=== PATIENT | female | born 1945 | race Caucasian/White ===

== ENCOUNTER 2019-11-08 14:22 | Observation (INO) | payer MEDICARE, OTHER, SELFPAY ==
[2019-11-08 14:24] VITALS: BMI 19.7
[2019-11-08 14:27] VITALS: BP 141/70; PULSE 70; RESP 16; TEMP 36.8; O2SAT 97
--- NOTE | 2019-11-08 14:27 | W.ED.EXTPRO ---
Documented by User: SAM Ragland 11/10/19 07:04 HPI - Extremity Problem General: Chief complaint: Extremity Problem,Nontraumatic Stated complaint: LEFT ARM PAIN Time Seen by Provider: 11/08/19 14:27 Source: patient Mode of arrival: ambulatory Limitations: no limitations History of Present Illness: HPI Narrative: Patient is a 74-year-old female who presents to ED today with complaints of left arm pain that began earlier today; patient states she was having pain in her back which is normal for her and states she took a morphine tablet because of this; patient reports last time she took a morphine tablet she noticed left arm pain as well; when asked patient does report that before the arm pain started she had a small amount of chest pains that have now completely subsided; she does not feel short of breath; denies dizziness, lightheadedness, syncopal episodes; denies numbness, tingling, loss of sensation, weakness in her upper extremities; denies headache or visual changes MD Complaint: extremity pain Relieving factors: nothing Associated symptoms: Reports chest pain; Deny fever(s) or rash Review of Systems Const: Denies: fever or chills Eyes: Denies: change in vision or blurry vision Card: Reports: chest pain; Denies: palpitations, irregular heart rhythm, edema, lightheadedness, syncope or shortness of breath on exertion Resp: Denies: shortness of breath, productive cough or pain on inspiration GI: Denies: abdominal pain, nausea, vomiting, heartburn/indigestion or diarrhea : Denies: painful urination Musc: Denies: neck pain, back pain or joint pain Skin/Breast: Denies: rash PFSH ED PFSH: Statuses (acute, chronic, etc) shown below reflect problem list status as previously entered and may not be historically accurate Surgical History H/O: hysterectomy (Acute) History of appendectomy (Acute) History of cholecystectomy (Acute) Social History Smoking and tobacco status: current every day smoker cigarettes Packs smoked per day: 1 Alcohol intake: never Household members: none Housing: House Physical Exam Const: COMMON NORMALS: no apparent distress, oriented x3, alert and well nourished HENMT: COMMON NORMALS: normocephalic and head/scalp atraumatic HEAD & SCALP: normocephalic and atraumatic Neck/C-Spine: COMMON NORMALS: full ROM, no lymphadenopathy, supple and no meningeal signs Chest: COMMONS NORMALS: inspection of chest normal Resp: COMMON NORMALS: normal respiratory effort and clear to auscultation bilaterally AUSCULTATION: clear to auscultation bilaterally Cardio: COMMON NORMALS: regular rate and regular rhythm RATE: regular rate RHYTHM: regular rhythm GI: COMMON NORMALS: normal to inspection, nondistended, normoactive bowel sounds, soft to palpation, non-tender, no hepatosplenomegaly and no masses PALPATION: Yes soft and Yes no hepatosplenomegaly : COMMON NORMALS: Yes no CVA tenderness BLADDER/KIDNEY EXAM: Yes no CVA tenderness Back/Pelvis: COMMON NORMALS: no CVA tenderness and thoracic and lumbar spine normal to inspection Extremity: COMMON NORMALS: normal to inspection Neuro: COMMON NORMALS: oriented x3 SENSORIUM/ORIENTATION: Yes alert MENINGEAL SIGNS: Yes no meningeal signs Skin: COMMON NORMALS: no rashes or lesions noted GENERAL SKIN EXAM: no rashes or lesions noted Course Vital Signs: Vital signs: Vital Signs Temperature 97.9 F 11/09/19 11:00 Pulse Rate 67 11/09/19 11:00 Respiratory Rate 18 11/09/19 11:00 Blood Pressure 102/54 11/09/19 11:00 Pulse Oximetry 97 11/09/19 11:00 MDM - Extremity (Nontraumatic) Lab Data: Labs: Lab Results 11/08/19 11/08/19 11/08/19 Range/Units 14:40 14:40 14:40 WBC 4.0 (4.0-10.0) 10^3/ uL RBC 4.55 (4.1-5.3) 10^6/u L Hgb 13.7 (11.5-15.3) g/dL Hct 39.8 (37.0-47.0) % MCV 87.5 (81-99) fL MCH 30.1 (28.0-34.0) pg MCHC 34.4 (30.0-36.0) g/dL RDW 12.5 (12.1-15.1) % Plt Count 174 (130-400) 10^3/c mm MPV 11.3 H (7.4-10.4) fL Neut % (Auto) 84.4 % Lymph % (Auto) 4.5 % [place] % (Auto) 9.8 % Eos % (Auto) 0.0 % Baso % (Auto) 0.5 % Neut # (Auto) 3.4 (1.8-7.7) 10^3/u L Lymph # (Auto) 0.2 L (0.8-4.8) 10^3/u L [place] # (Auto) 0.4 (0.2-0.9) 10^3/u L Eos # (Auto) 0.0 (0.0-0.8) 10^3/u L Baso # (Auto) 0.0 (0.0-0.1) 10^3/u L Nucleated RBC % (a uto) 0 % Nucleated RBCs # 0.0 /100WBC Sodium 145 (136-145) mmol/L Potassium 4.3 (3.5-5.1) mmol/L Chloride 103 (98-107) mmol/L Carbon Dioxide 25 (22-29) mmol/L Anion Gap 21.3 H (5-19) BUN 30 H (8-23) mg/dL Creatinine 0.9 (0.5-0.9) mg/dL Glucose 109 H (74-106) mg/dL Calcium 10.0 (8.8-10.2) mg/Dl Total Bilirubin 0.3 (0.15-1.2) mg/dL AST 46 H (0-32) U/L ALT 24 (0-33) U/L Alkaline Phosphata se 124 H (35-105) IU/L Troponin T Baselin e 18 H (0-10) ng/mL Troponin T 120 Min tangirnaq (0-10) ng/mL Delta Troponin T (0-10) ABS# Total Protein 7.4 (6.6-8.7) g/dL Albumin 3.8 (3.5-5.2) g/dL Globulin 3.6 (1.3-4.6) g/dL Urine Color (Yellow) Urine Appearance (CLEAR) Urine pH (5-7) Ur Specific Gravit y (1.005-1.030) Urine Protein (Negative) Urine Glucose (UA) (Normal) Urine Ketones (Negative) Urine Occult Blood (Negative) Urine Nitrate (Negative) Urine Bilirubin (NEGATIVE) Urine Urobilinogen (Negative) mg/dL Ur Leukocyte Maci ase (Negative) 11/08/19 11/08/19 Range/Units 16:27 16:32 WBC (4.0-10.0) 10^3/ uL RBC (4.1-5.3) 10^6/u L Hgb (11.5-15.3) g/dL Hct (37.0-47.0) % MCV (81-99) fL MCH (28.0-34.0) pg MCHC (30.0-36.0) g/dL RDW (12.1-15.1) % Plt Count (130-400) 10^3/c mm MPV (7.4-10.4) fL Neut % (Auto) % Lymph % (Auto) % [place] % (Auto) % Eos % (Auto) % Baso % (Auto) % Neut # (Auto) (1.8-7.7) 10^3/u L Lymph # (Auto) (0.8-4.8) 10^3/u L [place] # (Auto) (0.2-0.9) 10^3/u L Eos # (Auto) (0.0-0.8) 10^3/u L Baso # (Auto) (0.0-0.1) 10^3/u L Nucleated RBC % (a uto) % Nucleated RBCs # /100WBC Sodium (136-145) mmol/L Potassium (3.5-5.1) mmol/L Chloride (98-107) mmol/L Carbon Dioxide (22-29) mmol/L Anion Gap (5-19) BUN (8-23) mg/dL Creatinine (0.5-0.9) mg/dL Glucose (74-106) mg/dL Calcium (8.8-10.2) mg/Dl Total Bilirubin (0.15-1.2) mg/dL AST (0-32) U/L ALT (0-33) U/L Alkaline Phosphata se (35-105) IU/L Troponin T Baselin e (0-10) ng/mL Troponin T 120 Min tangirnaq 17.57 H (0-10) ng/mL Delta Troponin T -0.43 L (0-10) ABS# Total Protein (6.6-8.7) g/dL Albumin (3.5-5.2) g/dL Globulin (1.3-4.6) g/dL Urine Color Yellow (Yellow) Urine Appearance Clear (CLEAR) Urine pH 5 (5-7) Ur Specific Gravit y 1.010 (1.005-1.030) Urine Protein Neg (Negative) Urine Glucose (UA) Norm (Normal) Urine Ketones Negative (Negative) Urine Occult Blood Neg (Negative) Urine Nitrate Negative (Negative) Urine Bilirubin Neg (NEGATIVE) Urine Urobilinogen Norm (Negative) mg/dL Ur Leukocyte Maci ase Negative (Negative) Imaging Data^: CXR: Radiologist's impression: [address] [address] XRay Report Signed Patient: Anju Mackey Unit #: [id number] : 1945 Age/Sex: 74 / F ADM Date: 11/08/19 Loc: ER Room/Bed: Attending Dr: Ordering Provider/Ordering MD: Nata Parikh Date of Service: 11/08/19 Procedure(s): XR chest 1V portable [id number] Accession Number(s): [id number] Report Number: [id number] PROCEDURE INFORMATION: Exam: XR Chest, 1 View Exam date and time: 11/08/2019 2:33 PM Age: 74 years old Clinical indication: Chest pain; Other: Taj arm and back pain; Prior surgery; Surgery date: 6+ months; Surgery type: Stents; Additional info: Cough/congestion TECHNIQUE: Imaging protocol: XR of the chest Views: 1 view. COMPARISON: CR Chest 1 [place] [id number] 07/20/2016 10:50 AM FINDINGS: Lungs: Stable COPD . Pleural space: Unremarkable. No pleural effusion. No pneumothorax. Heart/Mediastinum: Unremarkable. No cardiomegaly. Bones/joints: Unremarkable. Other findings: Patient rotation to the right. XR/XR chest 1V portable [id number] IMPRESSION: Stable COPD . Dictated By: Nilo Elkins MD Signed By: Nilo Elkins MD Signed Date/Time: 11/08/19 1516 DD/ 1514 EKG Data^: EKG 1: EKG interpretation date: 11/08/19 EKG interpretation time: 14:39 Prior EKG tracings: available for review Interpretation: Sinus rhythm Rate 77 LBBB No acute changes from previous on 06/[address] King EKG 2: EKG interpretation date: 11/08/19 EKG interpretation time: 16:28 Prior EKG tracings: available for review Interpretation: Sinus rhythm Rate 82 LBBB No changes from previous EKG performed earlier in this visit Discharge Plan Discharge Patient Disposition: Placed in Observation Admit Provider: Ivette Sagastume Clinical Impression: Chest pain Condition: Stable Referrals: Butch Gilbert MD [Physician] - 1 week (You have an follow-up appointment wit Evonne Rodrigues on SaturdayNovember 17 at 10:30a.m. If, you have any questions or need to reschedule. Please, call ) Vanessa Vega DO [Family Provider] - 4-7 days (You have an follow-up appointment with Vanessa Vega DO on November 12 at 10 a.m. If, you have any questions or need to reschedule. Please, call ) Discharge Diet: Cardiac Discharge Activity: Resume usual activity Patient Instructions: Chronic Pain (DC), Narcotic Pain Management (DC) Additional Instructions: Please avoid any NSAIDs, ibuprofen, naproxen, etc due to mild kidney injury. For now hold simvastatin. This may be resumed by primary care provider. Hold lisinopril-HCTZ if your blood pressure is lower than 120/80. If you experience chest pain, which is not resolving with nitroglycerin, proceed to emergency department for evaluation. Discharge Date/Time: 11/08/19 19:53 Coding Level of Care Code ED Environmental Specialist for Chg Fwd Exam Problem Focused Documented by User: Milan King MD, [facility] 11/08/19 17:49 HPI - Extremity Problem General: Chief complaint: Extremity Problem,Nontraumatic Stated complaint: LEFT ARM PAIN Time Seen by Provider: 11/08/19 14:27 PFSH ED PFSH: Statuses (acute, chronic, etc) shown below reflect problem list status as previously entered and may not be historically accurate Surgical History H/O: hysterectomy (Acute) History of appendectomy (Acute) History of cholecystectomy (Acute) Social History Smoking and tobacco status: current every day smoker cigarettes Packs smoked per day: 1 Alcohol intake: never Household members: none Housing: House Course Vital Signs: Vital signs: Vital Signs Temperature 97.9 F 11/09/19 11:00 Pulse Rate 67 11/09/19 11:00 Respiratory Rate 18 11/09/19 11:00 Blood Pressure 102/54 11/09/19 11:00 Pulse Oximetry 97 11/09/19 11:00 MDM - Extremity (Nontraumatic) MDM Narrative: Medical decision making narrative: 74-year-old female patient who presents with chest pain radiating to her arm. Her heart score is 6 making a high risk candidate. She is therefore being admitted overnight for cardiac work-up. Medical Records: Attestation: I reviewed the patient's medical records. Lab Data: Attestation: I reviewed the patient's lab results. Labs: Lab Results 11/08/19 11/08/19 11/08/19 Range/Units 14:40 14:40 14:40 WBC 4.0 (4.0-10.0) 10^3/ uL RBC 4.55 (4.1-5.3) 10^6/u L Hgb 13.7 (11.5-15.3) g/dL Hct 39.8 (37.0-47.0) % MCV 87.5 (81-99) fL MCH 30.1 (28.0-34.0) pg MCHC 34.4 (30.0-36.0) g/dL RDW 12.5 (12.1-15.1) % Plt Count 174 (130-400) 10^3/c mm MPV 11.3 H (7.4-10.4) fL Neut % (Auto) 84.4 % Lymph % (Auto) 4.5 % [place] % (Auto) 9.8 % Eos % (Auto) 0.0 % Baso % (Auto) 0.5 % Neut # (Auto) 3.4 (1.8-7.7) 10^3/u L Lymph # (Auto) 0.2 L (0.8-4.8) 10^3/u L [place] # (Auto) 0.4 (0.2-0.9) 10^3/u L Eos # (Auto) 0.0 (0.0-0.8) 10^3/u L Baso # (Auto) 0.0 (0.0-0.1) 10^3/u L Nucleated RBC % (a uto) 0 % Nucleated RBCs # 0.0 /100WBC Sodium 145 (136-145) mmol/L Potassium 4.3 (3.5-5.1) mmol/L Chloride 103 (98-107) mmol/L Carbon Dioxide 25 (22-29) mmol/L Anion Gap 21.3 H (5-19) BUN 30 H (8-23) mg/dL Creatinine 0.9 (0.5-0.9) mg/dL Glucose 109 H (74-106) mg/dL Calcium 10.0 (8.8-10.2) mg/Dl Total Bilirubin 0.3 (0.15-1.2) mg/dL AST 46 H (0-32) U/L ALT 24 (0-33) U/L Alkaline Phosphata se 124 H (35-105) IU/L Troponin T Baselin e 18 H (0-10) ng/mL Troponin T 120 Min tangirnaq (0-10) ng/mL Delta Troponin T (0-10) ABS# Total Protein 7.4 (6.6-8.7) g/dL Albumin 3.8 (3.5-5.2) g/dL Globulin 3.6 (1.3-4.6) g/dL Urine Color (Yellow) Urine Appearance (CLEAR) Urine pH (5-7) Ur Specific Gravit y (1.005-1.030) Urine Protein (Negative) Urine Glucose (UA) (Normal) Urine Ketones (Negative) Urine Occult Blood (Negative) Urine Nitrate (Negative) Urine Bilirubin (NEGATIVE) Urine Urobilinogen (Negative) mg/dL Ur Leukocyte Maci ase (Negative) 11/08/19 11/08/19 Range/Units 16:27 16:32 WBC (4.0-10.0) 10^3/ uL RBC (4.1-5.3) 10^6/u L Hgb (11.5-15.3) g/dL Hct (37.0-47.0) % MCV (81-99) fL MCH (28.0-34.0) pg MCHC (30.0-36.0) g/dL RDW (12.1-15.1) % Plt Count (130-400) 10^3/c mm MPV (7.4-10.4) fL Neut % (Auto) % Lymph % (Auto) % [place] % (Auto) % Eos % (Auto) % Baso % (Auto) % Neut # (Auto) (1.8-7.7) 10^3/u L Lymph # (Auto) (0.8-4.8) 10^3/u L [place] # (Auto) (0.2-0.9) 10^3/u L Eos # (Auto) (0.0-0.8) 10^3/u L Baso # (Auto) (0.0-0.1) 10^3/u L Nucleated RBC % (a uto) % Nucleated RBCs # /100WBC Sodium (136-145) mmol/L Potassium (3.5-5.1) mmol/L Chloride (98-107) mmol/L Carbon Dioxide (22-29) mmol/L Anion Gap (5-19) BUN (8-23) mg/dL Creatinine (0.5-0.9) mg/dL Glucose (74-106) mg/dL Calcium (8.8-10.2) mg/Dl Total Bilirubin (0.15-1.2) mg/dL AST (0-32) U/L ALT (0-33) U/L Alkaline Phosphata se (35-105) IU/L Troponin T Baselin e (0-10) ng/mL Troponin T 120 Min tangirnaq 17.57 H (0-10) ng/mL Delta Troponin T -0.43 L (0-10) ABS# Total Protein (6.6-8.7) g/dL Albumin (3.5-5.2) g/dL Globulin (1.3-4.6) g/dL Urine Color Yellow (Yellow) Urine Appearance Clear (CLEAR) Urine pH 5 (5-7) Ur Specific Gravit y 1.010 (1.005-1.030) Urine Protein Neg (Negative) Urine Glucose (UA) Norm (Normal) Urine Ketones Negative (Negative) Urine Occult Blood Neg (Negative) Urine Nitrate Negative (Negative) Urine Bilirubin Neg (NEGATIVE) Urine Urobilinogen Norm (Negative) mg/dL Ur Leukocyte Maci ase Negative (Negative) Discharge Plan Discharge Patient Disposition: Placed in Observation Admit Provider: Ivette Sagastume Clinical Impression: Chest pain Condition: Stable Referrals: Butch Gilbert MD [Physician] - 1 week (You have an follow-up appointment wit Evonne Rodrigues on SaturdayNovember 17 at 10:30a.m. If, you have any questions or need to reschedule. Please, call ) Vanessa Vega DO [Family Provider] - 4-7 days (You have an follow-up appointment with Vanessa Vega DO on November 12 at 10 a.m. If, you have any questions or need to reschedule. Please, call ) Discharge Diet: Cardiac Discharge Activity: Resume usual activity Patient Instructions: Chronic Pain (DC), Narcotic Pain Management (DC) Additional Instructions: Please avoid any NSAIDs, ibuprofen, naproxen, etc due to mild kidney injury. For now hold simvastatin. This may be resumed by primary care provider. Hold lisinopril-HCTZ if your blood pressure is lower than 120/80. If you experience chest pain, which is not resolving with nitroglycerin, proceed to emergency department for evaluation. Discharge Date/Time: 11/08/19 19:53 Coding Level of Care Code ED Environmental Specialist for Rebecca Meyers Exam Problem Focused
--- NOTE | 2019-11-08 14:32 | XRR_ITS ---
PROCEDURE INFORMATION: Exam: XR Chest, 1 View Exam date and time: 11/08/2019 2:33 PM Age: 74 years old Clinical indication: Chest pain; Other: Taj arm and back pain; Prior surgery; Surgery date: 6+ months; Surgery type: Stents; Additional info: Cough/congestion TECHNIQUE: Imaging protocol: XR of the chest Views: 1 view. COMPARISON: CR Chest 1 [place] [id number] 07/20/2016 10:50 AM FINDINGS: Lungs: Stable COPD . Pleural space: Unremarkable. No pleural effusion. No pneumothorax. Heart/Mediastinum: Unremarkable. No cardiomegaly. Bones/joints: Unremarkable. Other findings: Patient rotation to the right. XR/XR chest 1V portable [id number] IMPRESSION: Stable COPD .
--- NOTE | 2019-11-08 14:32 | ECG_ITS ---
Measurements Intervals [place] Rate: 77 P: 62 LA: 169 QRS: -9 QRSD: 150 T: 118 QT: 415 QTc: 472 SINUS RHYTHM POSSIBLE LEFT ATRIAL ENLARGEMENT [-0.1mV P WAVE IN V1/V2] LEFT BUNDLE BRANCH BLOCK [120+ ms QRS DURATION, 80+ ms Q/S IN V1/V2, 85+ ms R IN I/aVL/V5/V6] Compared to ECG 07/20/2016 16:34:03 Ventricular premature complex(es) no longer present Electronically Signed On 11-08-2019 19:20:15 TRANSCRIPT CLERK by Katerina Whaley M.D. [email or web address]
[2019-11-08 14:45] VITALS: PULSE 71
--- NOTE | 2019-11-08 14:46 | PC.NURSE ---
Patient states that the pain started after taking her 15 mg morphine tablet for back pain, patient also c/o of severe back pain and near syncope post medication.
[2019-11-08 14:50] LABS: Basophils % 0.5 %; Hematocrit 39.8 % (37.0-47.0); Hemoglobin 13.7 g/dL (11.5-15.3); Lymphocytes # 0.2 10^3/uL (0.8-4.8); Lymphocytes % 4.5 %; Mean Corpuscular HGB Conc 34.4 g/dL (30.0-36.0); Mean Corpuscular Hemoglobin 30.1 pg (28.0-34.0); Mean Corpuscular Volume 87.5 fL (81-99); Mean Platelet Volume 11.3 fL (7.4-10.4); Monocytes # 0.4 10^3/uL (0.2-0.9); Monocytes % 9.8 %; Neutrophils # 3.4 10^3/uL (1.8-7.7); Neutrophils % 84.4 %; Nucleated Red Blood Cells % 0 %; Platelet Count 174 10^3/cmm (130-400); Red Blood Count 4.55 10^6/uL (4.1-5.3); Red Cell Distribution Width 12.5 % (12.1-15.1)
[2019-11-08 15:04] LABS: Alanine Aminotransferase 24 U/L (0-33); Albumin Level 3.8 g/dL (3.5-5.2); Alkaline Phosphatase 124 IU/L (35-105); Anion Gap 21.3 (5-19); Aspartate Amino Transferase 46 U/L (0-32); Blood Urea Nitrogen 30 mg/dL (8-23); Carbon Dioxide 25 mmol/L (22-29); Chloride 103 mmol/L (98-107); Globulin 3.6 g/dL (1.3-4.6); Glucose 109 mg/dL (74-106); Potassium 4.3 mmol/L (3.5-5.1); Sodium 145 mmol/L (136-145); Total Bilirubin 0.3 mg/dL (0.15-1.2); Total Protein 7.4 g/dL (6.6-8.7)
[2019-11-08 15:06] LABS: Troponin(5th) Baseline 18 ng/mL (0-10)
--- NOTE | 2019-11-08 16:32 | ECG_ITS ---
Measurements Intervals [place] Rate: 82 P: 63 MA: 165 QRS: 5 QRSD: 138 T: 152 QT: 402 QTc: 470 SINUS RHYTHM POSSIBLE LEFT ATRIAL ENLARGEMENT [-0.1mV P WAVE IN V1/V2] LEFT BUNDLE BRANCH BLOCK [120+ ms QRS DURATION, 80+ ms Q/S IN V1/V2, 85+ ms R IN I/aVL/V5/V6] Compared to ECG 07/20/2016 16:34:03 Ventricular premature complex(es) no longer present Electronically Signed On 11-08-2019 19:24:15 KARDEX CLERK by Katerina Whaley M.D. [id number]
[2019-11-08 16:35] LABS: Add Urine Microscopic? NO
[2019-11-08 16:38] LABS: Bilirubin Urine Neg (NEGATIVE); Blood Urine Neg (Negative); Glucose Urine UA Norm (Normal); Ketones Urine Negative (Negative); Leukocyte Esterase Urine Negative (Negative); Nitrate Urine Negative (Negative); Protein Urine Neg (Negative); Urine Appearance Clear (CLEAR); Urine Color Yellow (Yellow); Urobilinogen Urine Norm (Negative); pH Urine 5 (5-7)
[2019-11-08 16:54] LABS: Troponin 5 2HR 17.57 ng/mL (0-10)
[2019-11-08] MEDS: ondansetron 2 mg/ML SDV 2 mL 4 MG IM (16:55)
[2019-11-08 16:58] LABS: Troponin 5 2HR Delta -0.43 ABS# (0-10)
--- NOTE | 2019-11-08 18:15 | PM.HP ---
Providers/Chief Complaint Admitting Physician: Ivette Sagastume MD Chief Complaint: LEFT ARM PAIN History of Present Illness Anju Mackey is a 74 year old female with PMHx of CAD s/p stenting x 6 (2006), HTN, Hyperlipidemia, Chronic smoker, Chronic back pain (on narcotics), presents with c/o LUE pain that started this AM after taking dose of oral morphine prescribed recently for chronic low back pain. She has had a similar episode about a week ago after taking her first dose of oral morphine in addition to nausea, lightheadedness and almost passing out. She denies chest pain/discomfort, shortness of breath, vomiting until today while in ED; LE edema. She did take NTG at home prior to coming to ED with some noted relief in her symptoms. She has had prior stenting all done at the same time in 2006 and follows up with Dr. Gilbert as her primary regional transportation manager. She has not had recent cardiac workup, last done in 2015 with Echo showing EF=45-50% and chemical stress testing that was negative for significant ischemia. She has had 2 gen 5 troponins done with no significant delta change, no new ECG changes, stable vital signs, and following episode of NBNB emesis, feels almost like her usual self. Given need to r/o anginal equivalent in a patient with significant CAD risk factors, she is been admitted for further workup. I did discuss possibility of stress testing which she is very reluctant to have as she has had bad reactions to them in the past. Agreeable to labs, ECG, telemetry monitoring for now. Family member at bedside during my evaluation in ED. Review of Systems Const: Denies: fever, chills, change in appetite or fatigue Eyes: Denies: change in vision Card: Reports: lightheadedness and pre-syncope; Denies: chest pain, edema, swelling of feet/ankles, shortness of breath on exertion or shortness of breath when lying down Resp: Denies: shortness of breath or productive cough GI: Reports: nausea and vomiting (NBNB (in ED)); Denies: abdominal pain, vomiting blood or blood in stool : Denies: difficulty urinating, painful urination or urinary frequency Musc: Reports: back pain (chronic, low) and extremity pain (left arm) Skin/Breast: Denies: rash Neuro: Denies: numbness in extremities or weakness in extremities Psych: Denies: anxiety Medications/Allergies Home Medications Medication Instructions Recorded Confirmed Last Taken Type amlodipine 10 mg PO DAILY 11/08/19 11/08/19 11/07/19 History clopidogrel 75 mg PO DAILY 11/08/19 11/08/19 11/08/19 History ibuprofen [Advil] See Rx Instructions .ROUTE .COMPLEX 11/08/19 11/08/19 Unknown History lisinopril-hydrochlorothiazide 2 tab PO DAILY 11/08/19 11/08/19 11/07/19 History morphine 15 mg PO Q4H PRN 11/08/19 11/08/19 11/08/19 History simvastatin 40 mg PO QPM 11/08/19 11/08/19 11/07/19 History tafluprost (PF) [Zioptan (PF)] 1 drp OPHTHALMIC (EYE) QPM 11/08/19 11/08/19 11/07/19 History timolol maleate 1 drp OPHTHALMIC (EYE) QAM 11/08/19 11/08/19 11/08/19 History trazodone 50 - 150 mg PO BEDTIME 11/08/19 11/08/19 11/07/19 History Allergies Allergy/AdvReac Type Severity Reaction Status Date / Time Iodinated Contrast Media Allergy ADR-Chest Verified 11/08/19 14:34 Pain tetracycline Allergy ADR-Nausea Verified 11/08/19 14:34 PFSH Acute PFSH: Statuses (acute, chronic, etc) shown below reflect problem list status as previously entered and may not be historically accurate Medical History (Updated 11/08/19 @ 18:22 by Ivette Sagastume MD) Coronary artery disease (Acute) s/p stenting x 6 (2006) Hyperlipidemia (Acute) Hypertension (Acute) Surgical History H/O: hysterectomy (Acute) History of appendectomy (Acute) History of cholecystectomy (Acute) Family History (Updated 11/08/19 @ 18:20 by Ivette Sagastume MD) Other CAD (coronary artery disease) Cancer Diabetes Social History (Updated 11/08/19 @ 18:20 by Ivette Sagastume MD) Smoking and tobacco status: current every day smoker cigarettes Packs smoked per day: 1 Alcohol intake: never Substance/Drug Use: never Household members: none Housing: House Vitals/I&O/Wt Last Vital Signs Temp 98.2 F 11/08/19 14:27 Pulse 71 11/08/19 14:45 Resp 16 11/08/19 14:27 BP 141/70 11/08/19 14:27 Pulse Ox 97 11/08/19 14:27 Weight last 48 hrs Weight 48.988 kg Physical Exam Const: COMMON NORMALS: no apparent distress and oriented x3 GENERAL APPEARANCE: cooperative, comfortable and appears older than stated age NUTRITIONAL APPEARANCE: thin ORIENTATION/CONSCIOUSNESS: Yes awake HENMT: COMMON NORMALS: normocephalic, head/scalp atraumatic, hearing grossly normal bilaterally and moist oral mucous membranes HEAD & SCALP: normocephalic and atraumatic MOUTH: moist mucous membranes abnormal Details: parched Eye: COMMON NORMALS: PERRL, EOMs intact bilaterally and conjunctivae normal CONJUNCTIVA: Yes conjunctivae normal PUPIL: Yes PERRL Neck/C-Spine: COMMON NORMALS: full ROM GENERAL: Yes normal visual inspection and Yes trachea midline Resp: COMMON NORMALS: normal respiratory effort, no retractions and no use of accessory muscles EFFORT & INSPECTION: Yes able to speak in complete sentences, Yes symmetric chest movement and No tachypneic AUSCULTATION: no wheezes and diminished lung sounds bilateral Cardio: COMMON NORMALS: regular rate, regular rhythm, S1 normal heart sound, S2 normal heart sound and no murmurs RATE: regular rate RHYTHM: regular rhythm HEART SOUNDS: S1 normal and S2 normal GI: COMMON NORMALS: normal to inspection, nondistended, normoactive bowel sounds, soft to palpation and non-tender PALPATION: Yes soft Extremity: COMMON NORMALS: normal to inspection, full ROM and no clubbing, cyanosis or edema; negative for no pedal edema Neuro: COMMON NORMALS: oriented x3, moves all extremities, no focal motor deficits and no sensory deficits noted Psych: COMMON NORMALS: mental status grossly normal, thought process normal, cooperative, affect normal and speech normal SPEECH: Yes normal speech THOUGHT PROCESS: normal thought process Skin: COMMON NORMALS: no rashes or lesions noted, no jaundice, no petechiae and no mottling GENERAL SKIN EXAM: no rashes or lesions noted and other (Thin skin) Data : 11/08/19 14:40 11/08/19 14:40 A&P Assessment and plan (1) Left upper limb pain: -Patient presented with left upper extremity pain after taking morphine which she states has happened once before last week when she took her first dose of oral morphine which is prescribed for chronic low back pain. She denies having had any chest pain, shortness of breath but did have some lightheadedness and presyncope. -Given her significant coronary artery disease history with prior stenting x6, need to exclude anginal equivalent -Received morphine in the ER and had an episode of nausea and vomiting. Symptoms are now currently resolved -Avoid morphine as this seems to trigger her symptoms -Telemetry monitoring, monitoring of vital signs -Troponin x2 with negative delta change noted, 6-hour troponin pending -EKG showing left bundle branch block, no acute ischemic changes -Chest x-ray unremarkable -DEANNA -Continue statin and Plavix -Discussed possible stress testing which patient states she has had bad reactions to in the past and would like to hold off unless absolutely necessary -Follows up with Dr. Gilbert as an outpatient -From review of medical record last cardiac work-up available was done in 2015 including an echo which showed ejection fraction of 45 to 50%, grade 1 diastolic dysfunction, mild concentric LVH, trace TR; as well as chemical stress testing with no significant ischemia detected -Antiemetics as needed Status: Acute Code(s): M79.602 - Pain in left arm Additional A&P Information Additional A&P Information: -Hypertension; resume oral antihypertensives -Hyperlipidemia: On statin -Chronic low back pain: Hold narcotics for now -Chronic smoker; 1 pack/day, add nicotine patch -Chronic diastolic CHF, no acute exacerbation -Non-oxygen dependent COPD; no acute exacerbation -Cardiac diet as tolerated -ambulate with assistance as needed -GI prophylaxis with Famotidine -Low risk for DVT so hold off on prophylaxis -Dispo: home -Code status: FULL code Attestations Medical Necessity Statement*: Anju Mackey's hospital stay will be less than 2 midnights for workup of left upper extremity pain as anginal equivalent, including serial troponins, ECGs, telemetry monitoring. Time Spent in Patient Care: Greater than 35 minutes (>than 50% of time spent in counselling and/or direct pt care on unit). Coding Level of Care Code Acute Heavy Duty Mechanic for Rebecca Meyers Diagnoses Left upper limb pain M79.602
[2019-11-08 19:03] VITALS: BP 122/64; PULSE 82; RESP 16; O2SAT 93
[2019-11-08 19:53] VITALS: BP 125/66; PULSE 88; RESP 22; TEMP 36.9; O2SAT 93
--- NOTE | 2019-11-08 20:32 | ECG_ITS ---
Measurements Intervals [place] Rate: 73 P: 61 VA: 157 QRS: -28 QRSD: 141 T: 138 QT: 422 QTc: 465 SINUS RHYTHM WITH FREQUENT VENTRICULAR PREMATURE COMPLEXES BORDERLINE LEFT AXIS DEVIATION [QRS AXIS < -20] INTRAVENTRICULAR CONDUCTION DELAY [130+ ms QRS DURATION] INTERPRETATION BASED ON A DEFAULT AGE OF 40 YEARS Compared to ECG 11/08/2019 16:28:17 Ventricular premature complex(es) now present Intraventricular conduction delay now present Left bundle-branch block no longer present Electronically Signed On 11-09-2019 19:30:15 EDUCATIONAL ADMINISTRATION TEACHER by Katerina Whaley M.D. [email or web address]
[2019-11-08] MEDS: atorvastatin 40 mg Tablet PO (20:42)
[2019-11-08] MEDS: famotidine 20 mg Tablet PO (20:42)
[2019-11-08] MEDS: trazodone 50 mg Tablet PO (20:42)
[2019-11-08 20:49] LABS: Troponin 5 6HR 21.36 ng/L (0-10); Troponin 5 6HR Delta 3.36 ng/L (0-12)
[2019-11-08 23:46] VITALS: BP 108/59; PULSE 59; RESP 18; TEMP 37.1; O2SAT 95
[2019-11-09 03:00] VITALS: BP 118/55; PULSE 57; RESP 16; TEMP 36.6; O2SAT 95
[2019-11-09 03:33] LABS: Basophils % 0.6 %; Eosinophils # 0.2 10^3/uL (0.0-0.8); Eosinophils % 2.9 %; Hematocrit 39.3 % (37.0-47.0); Hemoglobin 12.7 g/dL (11.5-15.3); Lymphocytes # 2.2 10^3/uL (0.8-4.8); Lymphocytes % 41.8 %; Mean Corpuscular HGB Conc 32.3 g/dL (30.0-36.0); Mean Corpuscular Hemoglobin 28.5 pg (28.0-34.0); Mean Corpuscular Volume 88.1 fL (81-99); Mean Platelet Volume 10.2 fL (7.4-10.4); Monocytes # 0.5 10^3/uL (0.2-0.9); Monocytes % 10.3 %; Neutrophils # 2.3 10^3/uL (1.8-7.7); Neutrophils % 44.2 %; Nucleated Red Blood Cells % 0 %; Platelet Count 358 10^3/cmm (130-400); Red Blood Count 4.46 10^6/uL (4.1-5.3); White Blood Count 5.3 10^3/uL (4.0-10.0)
[2019-11-09 04:08] LABS: Anion Gap 17.1 (5-19); Blood Urea Nitrogen 32 mg/dL (8-23); Calcium 9.8 mg/Dl (8.8-10.2); Carbon Dioxide 21 mmol/L (22-29); Chloride 98 mmol/L (98-107); Glucose 97 mg/dL (74-106); Potassium 4.1 mmol/L (3.5-5.1); Sodium 132 mmol/L (136-145)
[2019-11-09 07:26] VITALS: BP 110/56; PULSE 60; RESP 16; TEMP 36.5; O2SAT 95
--- NOTE | 2019-11-09 08:19 | PC.NURSE ---
patient requesting coffee this am, this nurse educated patient on the importance of remaining caffeine free for possible testing. patient reports that she was not going to have any stress test performed due to her not tolerating well the last time. patient also refusing to take medications at this time states I am supposed to go home today and i dot normally take my medications until 10 and i would like to wait.
[2019-11-09] MEDS: lisinopril 20 mg Tablet 40 MG PO (09:47)
[2019-11-09] MEDS: amlodipine 10 mg Tablet PO (09:47)
[2019-11-09] MEDS: clopidogrel 75 mg Tablet PO (09:48)
--- NOTE | 2019-11-09 10:08 | P.DS_ITS ---
Discharge Providers Date of Admission: 11/08/19 19:39 Date of Discharge: 11/09/19 Attending Provider at Admission: Ivette Sagastume MD Attending Provider at Discharge: Fritz Mckeon Diagnoses at Discharge Discharge Diagnosis (1) Left upper limb pain: Status: Acute Reason for Visit Reason for Visit: Reason For Visit: LEFT ARM PAIN Hospital Course Hospital Course: 74-year-old lady with history of coronary disease status post stenting in 2006, HTN, HLD, chronic smoker, chronic back pain (on narcotics), was placed in observation after an episode of left upper extremity pain which she feels was triggered after taking a dose of her oral morphine. She describes pain in the entire left arm. Due to history of coronary disease she was kept for rule out of acute PA. For noted mildly elevated with unremarkable delta. EKG with left bundle branch block. On review of prior EKG her left bundle branch block appears to be old. Stress testing was discussed with her history, and she had declined preferring only to follow-up with her mallet and die cutter in office. She feels that her symptoms were related to medication as she reports having exact same symptoms in the past with the same medication. Discussed with her that this is not a common side effect. Reviewing her labs, her renal function worsened this morning slightly with creatinine up to 1.2. AST is noted with mild elevation at 46. This morning she is feeling well, denies any pain is wanting to return home. Discussed with her we will add CK to her other labs. For now would hold statin until can be resumed by her primary care provider. Will recheck renal function in several days. For now continue current medications, avoid NSAIDs. If renal function worsening her blood pressure medications may need to be held/changed. Physical Exam Const: COMMON NORMALS: no apparent distress and oriented x3 HENMT: COMMON NORMALS: oropharynx normal Neck/C-Spine: COMMON NORMALS: no JVD Resp: COMMON NORMALS: normal respiratory effort and clear to auscultation bilaterally AUSCULTATION: clear to auscultation bilaterally Cardio: COMMON NORMALS: no JVD, regular rhythm, S1 normal heart sound, S2 normal heart sound and no murmurs RHYTHM: regular rhythm HEART SOUNDS: S1 normal and S2 normal GI: COMMON NORMALS: normal to inspection, nondistended, normoactive bowel sounds, soft to palpation and non-tender PALPATION: Yes soft Extremity: COMMON NORMALS: no joint enlargement and no pedal edema OTHER: No pain on shoulder abduction. No bicipital origin pain. No neck pain on palpation. Neuro: COMMON NORMALS: oriented x3 and moves all extremities Skin: COMMON NORMALS: no rashes or lesions noted GENERAL SKIN EXAM: no rashes or lesions noted Discharge Data Data Completed and Pending: Completed Studies During Hospitalization Category Date Time Status XR chest 1V bright ble [id number] Urgent Exams 11/08/19 14:32 Completed Pending at discharge Category Date Time Status Creatine Phosphok inase Routine Lab 11/09/19 09:58 Ordered Labs from last 24 hours 11/09/19 11/09/19 11/08/19 02:56 02:56 20:29 WBC 5.3 RBC 4.46 Hgb 12.7 Hct 39.3 MCV 88.1 MCH 28.5 MCHC 32.3 D RDW 13.0 Plt Count 358 MPV 10.2 Neut % (Auto) 44.2 Lymph % (Auto) 41.8 Bowie % (Auto) 10.3 Eos % (Auto) 2.9 Baso % (Auto) 0.6 Neut # (Auto) 2.3 Lymph # (Auto) 2.2 Bowie # (Auto) 0.5 Eos # (Auto) 0.2 Baso # (Auto) 0.0 Nucleated RBC % (a uto) 0 Nucleated RBCs # 0.0 Sodium 132 L Potassium 4.1 Chloride 98 Carbon Dioxide 21 L Anion Gap 17.1 BUN 32 H Creatinine 1.2 H Glucose 97 Calcium 9.8 Total Bilirubin AST ALT Alkaline Phosphata se Troponin I 6 Hour 21.36 H Troponin I Hi Sens Del 3.36 Troponin T Baselin e Troponin T 120 Min [place] Troponin T Total Protein Albumin Globulin Urine Color Urine Appearance Urine pH Ur Specific Gravit y Urine Protein Urine Glucose (UA) Urine Ketones Urine Occult Blood Urine Nitrate Urine Bilirubin Urine Urobilinogen Ur Leukocyte Maci ase 11/08/19 11/08/19 11/08/19 16:32 16:27 14:40 WBC RBC Hgb Hct MCV MCH MCHC RDW Plt Count MPV Neut % (Auto) Lymph % (Auto) [place]ie % (Auto) Eos % (Auto) Baso % (Auto) Neut # (Auto) Lymph # (Auto) [place] # (Auto) Eos # (Auto) Baso # (Auto) Nucleated RBC % (a uto) Nucleated RBCs # Sodium Potassium Chloride Carbon Dioxide Anion Gap BUN Creatinine Glucose Calcium Total Bilirubin AST ALT Alkaline Phosphata se Troponin I 6 Hour Troponin I Hi Sens Del Troponin T Baselin e 18 H Troponin T 120 Min [place] 17.57 H [place] Troponin T -0.43 L Total Protein Albumin Globulin Urine Color Yellow Urine Appearance Clear Urine pH 5 Ur Specific Gravit y 1.010 Urine Protein Neg Urine Glucose (UA) Norm Urine Ketones Negative Urine Occult Blood Neg Urine Nitrate Negative Urine Bilirubin Neg Urine Urobilinogen Norm Ur Leukocyte Maci ase Negative 11/08/19 11/08/19 14:40 14:40 WBC 4.0 RBC 4.55 Hgb 13.7 Hct 39.8 MCV 87.5 MCH 30.1 MCHC 34.4 RDW 12.5 Plt Count 174 MPV 11.3 H Neut % (Auto) 84.4 Lymph % (Auto) 4.5 Bowie % (Auto) 9.8 Eos % (Auto) 0.0 Baso % (Auto) 0.5 Neut # (Auto) 3.4 Lymph # (Auto) 0.2 L [place] # (Auto) 0.4 Eos # (Auto) 0.0 Baso # (Auto) 0.0 Nucleated RBC % (a uto) 0 Nucleated RBCs # 0.0 Sodium 145 Potassium 4.3 Chloride 103 Carbon Dioxide 25 Anion Gap 21.3 H BUN 30 H Creatinine 0.9 Glucose 109 H Calcium 10.0 Total Bilirubin 0.3 AST 46 H ALT 24 Alkaline Phosphata se 124 H Troponin I 6 Hour Troponin I Hi Sens Del Troponin T Baselin e Troponin T 120 Min [place] Troponin T Total Protein 7.4 Albumin 3.8 Globulin 3.6 Urine Color Urine Appearance Urine pH Ur Specific Gravit y Urine Protein Urine Glucose (UA) Urine Ketones Urine Occult Blood Urine Nitrate Urine Bilirubin Urine Urobilinogen Ur Leukocyte Maci ase Vitals: Last Vital Signs Temp 97.7 F 11/09/19 07:26 Pulse 60 11/09/19 07:26 Resp 16 11/09/19 07:26 BP 110/56 11/09/19 07:26 Pulse Ox 95 11/09/19 07:26 Discharge Plan Discharge Patient Disposition: Home, Self-Care Condition: Stable Prescriptions: Continued trazodone 50 mg tablet 50 - 150 mg PO BEDTIME RF: 0 clopidogrel 75 mg tablet 75 mg PO DAILY RF: 0 amlodipine 10 mg tablet 10 mg PO DAILY RF: 0 timolol maleate 0.5 % drops 1 drp ophthalmic (eye) QAM RF: 0 morphine 15 mg tablet 15 mg PO Q4H PRN (Reason: Pain) RF: 0 Zioptan (PF) 0.0015 % [place] 1 drp OPHTHALMIC (EYE) QPM RF: 0 lisinopril-hydrochlorothiazide 20-12.5 mg tablet 2 tab PO DAILY Qty: 0 RF: 0 Held simvastatin 40 mg tablet 40 mg PO QPM RF: 0 Hold Instructions: Resume on 11/16/19. This medication may be resumed by your primary care provider. Discontinued Advil 200 mg Tablet See Rx Instructions .ROUTE .COMPLEX RF: 0 Discharge Orders: Discharge Order (Routine); Ordered 11/09/19 Ordered By: Fritz Mckeon Other Ambulatory Orders: Basic Metabolic Panel (Routine) Timeframe: 3 Days Facility: [facility] - Location: Lab - Main Lab Ordered By: Fritz Mckeon Referrals: Butch Gilbert MD [Physician] - 1 week (Left arm pain. Mild troponin abnormality. Left bundle branch block. Requested to discuss stress test with her mallet and die cutter in office.) Vanessa Vega DO [Family Provider] - 4-7 days Discharge Diet: Cardiac Activity Restrictions/Additional Instructions: Please avoid any NSAIDs, ibuprofen, naproxen, etc due to mild kidney injury. For now hold simvastatin. This may be resumed by primary care provider. Hold lisinopril-HCTZ if your blood pressure is lower than 120/80. If you experience chest pain, which is not resolving with nitroglycerin, proceed to emergency department for evaluation. Discharge Attestations Time Spent in Discharge Care*: greater than 30 min Quality Metrics Clinical Quality Measures During this hospital stay, did patient experience: None Coding Level of Care Code Acute Reinsurance Claim Analyst for Chg Fwd Diagnoses Left upper limb pain M79.602
[2019-11-09 10:33] VITALS: BP 117/76; PULSE 59; RESP 16; TEMP 36.5; O2SAT 95
[2019-11-09 11:00] VITALS: BP 102/54; PULSE 67; RESP 18; TEMP 36.6; O2SAT 97
[2019-11-09 11:32] LABS: Creatine Phosphokinase 35 U/L (26-192)
== END 2019-11-09 11:40 | disposition home or self-care (01) ==
LOC: ER 17:49 → CSU 19:40
PROVIDERS: Family Medicine; Admitting Provider Family Medicine; Emergency Provider Physician Assistant; Family Provider Family Medicine; Visit Provider Internal Medicine
DX: M79.602 Pain in left arm (principal); E78.5 Hyperlipidemia, unspecified; I10 Essential (primary) hypertension; G89.29 Other chronic pain; M54.9 Dorsalgia, unspecified; F17.210 Nicotine dependence, cigarettes, uncomplicated; I50.32 Chronic diastolic (congestive) heart failure; J44.9 Chronic obstructive pulmonary disease, unspecified; Z79.891 Long term (current) use of opiate analgesic; I25.10 Atherosclerotic heart disease of native coronary artery without angina pectoris; Z82.49 Family history of ischemic heart disease and other diseases of the circulatory system; Z83.3 Family history of diabetes mellitus; Z95.5 Presence of coronary angioplasty implant and graft
CPT/HCPCS: 12345; 36415; 71045; 80048; 80053; 81003; 82550; 84484; 85025; 93005; 96372; 96374; 96375; 99282; 99285; G0378; J2405